=== PATIENT | male | born 1955 | race Caucasian/White ===

== ENCOUNTER 2020-03-03 04:18 | Emergency (ER) | payer MEDICARE, MEDICAID ==
[~2020-03-03] VITALS: Ht 165.1 cm; Wt 66.0 kg
[2020-03-03] MEDS ORDERED: ONDANSETRON HCL 4MG/2ML INJ IV STA ×2 (04:39)
[2020-03-03 05:00] LABS: BASOPHILS % 0.4 % (0.0-2.0); EOSINOPHILS % 1.1 % (0.0-5.0); HEMATOCRIT. 35.2 % (42.0-52.0); HEMOGLOBIN. 11.7 g/dL (14.0-18.0); LYMPHOCYTES % 19.5 % (20.0-50.0); MEAN CORPUSCULAR HEMOGLOBIN 28.8 pg (28.0-32.0); MEAN CORPUSCULAR VOLUME 86.6 fL (80.0-94.0); MEAN PLATELET VOLUME 7.8 fl (7.4-10.4); MONOCYTES % 6.4 % (2.0-8.0); NEUTROPHILS % 72.6 % (40.0-76.0); PLATELET 229 x1000/uL (130-400); RED BLOOD CELL COUNT 4.06 mill/uL (4.7-6.1); RED CELL DISTRIBUTION WIDTH 15.2 % (11.6-14.6)
[2020-03-03 05:02] LABS: BG BASE EXCESS -1.7 mmol/L (-2.0-2.0); BG CARBOXYHEMOGLOBIN 0.4 % (0.5-1.5); BG DEOXYHEMOGLOBIN 7.5 % (0.0-5.0); BG FRACTION INSPIRED OXYGEN 21; BG HCO3 ACT 22.4 mmol/L (22.0-26.0); BG METHEMOGLOBIN 0.3 % (0.0-1.5); BG OXYGEN SATURATION 92.4 % (92.0-98.5); BG OXYHEMOGLOBIN 91.8 % (94.0-97.0); BG PCO2 35.7 mmHg (35.0-45.0); BG PH 7.415 (7.350-7.450); BG PO2 64.7 mmHg (75.0-100.0); BG SAMPLE SITE LEFT RADIAL; BG TOTAL HEMOGLOBIN 12.3 g/dL (12.0-18.0); BG VENT MODE ROOM AIR
[2020-03-03 05:04] LABS: CHLORIDE 102 mEq/L (98-107)
[2020-03-03 05:07] LABS: PROTHROMBIN TIME 10.9 sec (9.6-11.0)
[2020-03-03 05:08] LABS: ETHANOL BLOOD < 10 mg/dL
[2020-03-03] MEDS ORDERED: IOHEXOL-350 100 ML BOTTLE ONE (06:30)
[2020-03-03] MEDS ORDERED: ASPIRIN 300MG SUPP PR SCH (06:30)
[2020-03-03 07:30] VITALS: BP 168/53
== END 2020-03-03 08:42 | disposition short-term general hospital (02) ==
LOC: ER 04:46 → CANBEDREQ 20:04
DX: I63.9 Cerebral infarction, unspecified (principal); I48.91 Unspecified atrial fibrillation; E11.22 Type 2 diabetes mellitus with diabetic chronic kidney disease; I12.0 Hypertensive chronic kidney disease with stage 5 chronic kidney disease or end stage renal disease; N18.6 End stage renal disease; Z99.2 Dependence on renal dialysis; Z94.0 Kidney transplant status
CPT/HCPCS: 36415; 36600; 70450; 70496; 70498; 71045; 80053; 80307; 80320; 80329; 82140; 82375; 82805; 82962; 83605; 84443; 84484; 85025; 85610; 86850; 86900; 86901; 87040; 93005; 96374; 99285; J2405; Q9967; G0480